=== PATIENT | male | born 1985 | race Caucasian/White ===

== ENCOUNTER 2016-11-09 12:00 | Emergency (ER) | payer OTHER ==
[~2016-11-09] VITALS: Ht 177.8 cm; Wt 77.1 kg
[2016-11-09 12:01] VITALS: BP 151/97
[2016-11-09] MEDS ORDERED: ONDANSETRON PF 4 MG/2 ML VIAL. IV ONE (12:15)
[2016-11-09] MEDS ORDERED: IV NORMAL SALINE 1000ML BAG 1,000 ML IV ONE (12:15)
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
--- NOTE | 2016-11-09 12:48 | RAD ---
Portable AP upright view CXR: Clinical indications: Altered mental status. Findings: No acute lung infiltrate or pleural effusion or pulmonary edema or lung mass or pneumothorax is seen. The heart size, pulmonary vasculature, mediastinum and both ruba are unremarkable. Impression: No acute radiographic abnormality is seen.
[2016-11-09 12:56] LABS: BASO % 0 % (0-3); EOS % 1 % (0-3); HEMATOCRIT 46.4 % (39.0-53.0); HEMOGLOBIN 15.7 g/dL (13.0-17.5); LYMPH # 1.9 x10^3/uL (1.0-4.8); LYMPH % 23 % (24-48); MEAN CORPUSCULAR HEMOGLOBIN 29 pg (25-35); MEAN CORPUSCULAR HGB CONC 34 g/dL (31-37); MEAN CORPUSCULAR VOLUME 87 fL (79-100); MONO % 10 % (0-9); NEUT % 65 % (31-73); PLATELET COUNT 175 x10^3/uL (140-400); RED BLOOD COUNT 5.33 x10^6/uL (4.30-5.70); RED CELL DISTRIBUTION WIDTH 13.5 % (11.5-14.5); WHITE BLOOD COUNT 8.2 x10^3/uL (4.0-11.0)
[2016-11-09 13:06] LABS: CREATININE 1.1 mg/dL (0.7-1.3); GFR 79.1; POTASSIUM 3.7 mmol/L (3.5-5.1)
[2016-11-09 13:12] LABS: ALBUMIN 4.8 g/dL (3.4-5.0); ALBUMIN/GLOBULIN RATIO 1.3 (1.0-1.7); TOTAL BILIRUBIN 0.7 mg/dL (0.2-1.0); TOTAL PROTEIN 8.5 g/dL (6.4-8.2)
[2016-11-09 14:37] LABS: BILIRUBIN,URINE NEGATIVE (NEG); GLUCOSE,URINE NEGATIVE (NEG); NITRITE,URINE POSITIVE (NEG); PROTEIN,URINE NEGATIVE (NEG-TRACE); UROBILINOGEN,URINE 0.2 mg/dL (0.2 mg/dL)
[2016-11-09 14:43] LABS: BARBITURATES NEG (NEG); BENZODIAZEPINES NEG (NEG); CANNABINOIDS NEG (NEG); COCAINE NEG (NEG); METHADONE NEG (NEG); OPIATES NEG (NEG); PHENCYCLIDINE NEG (NEG)
[2016-11-09 14:46] LABS: BACTERIA,URINE 0 /HPF (0-FEW); RBC,URINE 0 /HPF (0-2); WBC,URINE 0 /HPF (0-4)
[2016-11-09 14:47] LABS: SQUAMOUS EPITHELIAL CELL,UR OCC /LPF
--- NOTE | 2016-11-10 09:17 | EKG ---
[facility] [address] [place] [address] Test Date: 2016-11-09 Test Time: 12:07:06 Pat Name: MIRNA LUCAS Department: Room: Gender: M Quality Control Clerk: : 1985 Requested By: REBEKAH LEDBETTER Order Number: [id number] Reading MD: Ren Dean Measurements Intervals [place] Rate: 109 P: 34 NM: 142 QRS: 39 QRSD: 94 T: 1 QT: 330 QTc: 446 Interpretive Statements SINUS TACHYCARDIA T ABNORMALITY IN INFERIOR LEADS ABNORMAL ECG Electronically Signed On 11-10-2016 15:08:19 CDT by Ren Dean
== END 2016-11-09 13:31 | disposition left against medical advice (07) ==
LOC: ER 12:00
DX: F11.10 Opioid abuse, uncomplicated (principal); R06.00 Dyspnea, unspecified
CPT/HCPCS: 36415; 71010; 80053; 80307; 81001; 85027; 93005; 96361; 96374; 99285; J2405; J7030; G0479